=== PATIENT | female | born 1950 | race Caucasian/White ===

== ENCOUNTER 2017-06-25 15:00 | Emergency (ER) | payer BC ==
[2017-06-25 15:35] VITALS: BP 90/64
--- NOTE | 2017-06-25 16:16 | UC ---
Respiratory Complaint HPI - HPI Summary HPI Summary: 66 yo female with states she had the flu about a week ago fever/chills/myalgias/cough runny nose stated feeling better about 4 days ago since then has had a cough only not productive feels fatigued no SOB no n/v no CP - History of Current Complaint Chief Complaint: UCGeneralIllness Stated Complaint: UPPER RESPIRATORY Time Seen by Provider: 06/25/17 16:01 Hx Obtained From: Patient Onset/Duration: Gradual Onset, Lasting Weeks - 1 Timing: Constant Severity Initially: Moderate Severity Currently: Mild Pain Intensity: 0 Pain Scale Used: 0-10 Numeric Character: Cough: Nonproductive Aggravating Factors: Nothing Associated Signs And Symptoms: Positive: Fever - resolved x 3 days, Chills - resolved x 3 days, Nasal Congestion - resolved. Negative: Dyspnea, Wheezing, Calf Pain, Calf Swelling, Edema, URI - Allergies/Home Medications Allergies/Adverse Reactions: Allergies Allergy/AdvReac Type Severity Reaction Status Date / Time Sulfa (Sulfonamide Allergy Rash Verified 06/25/17 15:21 Antibiotics) Home Medications: Home Medications Amitriptyline TAB* [Elavil TAB*] 100 mg PO BEDTIME 06/25/17 [History Confirmed 06/25/17] Chlorthalidone 25 mg PO BEDTIME 06/25/17 [History Confirmed 06/25/17] Fluoxetine HCl [Prozac] 20 mg PO DAILY 06/25/17 [History Confirmed 06/25/17] Omeprazole CAP* [Prilosec CAP* 20 MG] 20 mg PO DAILY 06/25/17 [History Confirmed 06/25/17] Ramipril [Altace] 2.5 mg PO DAILY 06/25/17 [History Confirmed 06/25/17] traZODone TAB* [Desyrel TAB*] 50 mg PO BEDTIME 06/25/17 [History Confirmed 06/25] PMH/Surg Hx/FS Hx/Imm Hx Previously Healthy: Yes Cardiovascular History: Hypertension Respiratory History: Pneumonia - Surgical History Surgical History: Yes Surgery Procedure, Year, and Place: ANTI-REFLUX SX - Family History Known Family History: Positive: Hypertension - Social History Alcohol Use: Daily Substance Use Type: None Smoking Status (MU): Former Smoker When Did the Patient Quit Smoking/Using Tobacco: 2007 Review of Systems Constitutional: Fatigue Skin: Negative Eyes: Negative ENT: Negative Respiratory: Cough Cardiovascular: Negative Gastrointestinal: Negative Genitourinary: Negative Motor: Negative Neurovascular: Negative Musculoskeletal: Negative Neurological: Negative Psychological: Negative Is Patient Immunocompromised?: No All Other Systems Reviewed And Are Negative: Yes Physical Exam Triage Information Reviewed: Yes Appearance: Well-Appearing, No Pain Distress, Well-Nourished Vital Signs: Initial Vital Signs Temp 100 F 06/25/17 15:26 Pulse 80 06/25/17 15:26 Resp 16 06/25/17 15:26 BP 90/64 06/25/17 15:26 Pulse Ox 96 06/25/17 15:26 Vital Signs Reviewed: Yes Eyes: Positive: Conjunctiva Clear ENT: Positive: Hearing grossly normal. Negative: Nasal congestion, Nasal drainage, Tonsillar swelling, Tonsillar exudate, Dental tenderness, Sinus tenderness, Uvula midline Neck: Positive: Supple, Nontender, No Lymphadenopathy Respiratory: Positive: No respiratory distress, No accessory muscle use, Crackles - right base, Wheezing - with forced expiration Cardiovascular: Positive: RRR, No Murmur Musculoskeletal: Positive: ROM Intact, No Edema Neurological: Positive: Alert Psychological Exam: Normal Skin Exam: Normal UC Diagnostic Evaluation - Laboratory O2 Sat by Pulse Oximetry: 96 - normal/not hypoxic - Radiology Xray Interpretation: No Acute Changes - chronic scarring right base Radiology Interpretation Completed By: Radiologist Respiratory Course/Dx - Course Course Of Treatment: repeat BP- normotensive - Differential Dx/Diagnosis Provider Diagnoses: acute bronchitis with bronchospasm Discharge - Discharge Plan Condition: Stable Disposition: HOME Prescriptions: Azithromycin TAB* [Zithromax TAB*] 250 mg PO DAILY #4 tab predniSONE [Deltasone] 40 mg PO DAILY #8 tab Patient Education Materials: Acute Bronchitis (ED) Referrals: Laurie Adams MD [Primary Care Provider] - 3 Days (if not improved) Additional Instructions: use inhaler as directed recheck for new or worsening symptoms or if not better in 3-4 days
--- NOTE | 2017-06-25 16:26 | RAD ---
Indication: Cough. 2 views of the chest including dual energy PA views demonstrates no mediastinal shift. Scarring in the right lung base is noted. No alveolar consolidation is noted. No pleural fluid is identified. IMPRESSION: Chronic pleural changes in the right lung base. No pneumonia is identified.
[2017-06-25] MEDS ORDERED: Albuterol HFA INHALER* 8 gm MDI INH ONE (16:36)
[2017-06-25] MEDS ORDERED: Azithromycin TAB* 250 MG PO ONE (16:37)
[2017-06-25] MEDS ORDERED: predniSONE TAB* 20 MG PO ONE (16:38)
[2017-06-25] MEDS ORDERED: Azithromycin TAB* 250 MG ONE (16:52)
== END 2017-06-25 16:54 | disposition home or self-care (01) ==
LOC: UCCORT 15:00
DX: J20.9 Acute bronchitis, unspecified (principal); I10 Essential (primary) hypertension; Z87.891 Personal history of nicotine dependence
CPT/HCPCS: 71046; 99203; A9270-GY; G0463; J7512

== ENCOUNTER 2017-08-30 11:15 | Emergency (ER) | payer BC ==
[2017-08-30 11:40] VITALS: BP 131/86
--- NOTE | 2017-08-30 12:24 | UC ---
Complaint Female HPI - HPI Summary HPI Summary: Pt presents with c/o continued dysuria that began yesterday. Pt was seen by PCP yesterday and diagnosed with dysuria and urine was sent for urine culture. Pt states that she is not feeling better and is "disappointed that her PCP did not start her on an antibiotic for the dysuria". - History Of Current Complaint Chief Complaint: UCGU Stated Complaint: URINARY Time Seen by Provider: 08/30/17 12:14 Hx Obtained From: Patient ?: No Onset/Duration: Sudden Onset, Lasting Days, Still Present Timing: Constant Severity Initially: Mild Severity Currently: Mild Pain Intensity: 0 Character: Burning Aggravating Factor(s): Urination Alleviating Factor(s): Nothing Associated Signs And Symptoms: Positive: Back Pain - Risk Factors Ectopic Risk Factor: Negative Ovarian Torsion Risk Factor: Negative - Allergies/Home Medications Allergies/Adverse Reactions: Allergies Allergy/AdvReac Type Severity Reaction Status Date / Time Sulfa (Sulfonamide Allergy Rash Verified 08/30/17 11:38 Antibiotics) PMH/Surg Hx/FS Hx/Imm Hx Previously Healthy: Yes Cardiovascular History: Hypertension - Surgical History Surgical History: Yes Surgery Procedure, Year, and Place: ANTI-REFLUX SX - Family History Known Family History: Positive: Hypertension - Social History Occupation: Retired Lives: With Family Alcohol Use: Daily Alcohol Amount: 1 glass wine Substance Use Type: None Smoking Status (MU): Former Smoker Have You Smoked in the Last Year: No When Did the Patient Quit Smoking/Using Tobacco: 2007 Review of Systems Constitutional: Negative Skin: Negative Eyes: Negative ENT: Negative Respiratory: Negative Cardiovascular: Negative Gastrointestinal: Negative Genitourinary: Dysuria Motor: Negative Neurovascular: Negative Musculoskeletal: Myalgia - upper back pain Neurological: Negative Psychological: Negative Is Patient Immunocompromised?: No All Other Systems Reviewed And Are Negative: Yes Physical Exam Triage Information Reviewed: Yes Appearance: Well-Appearing Vital Signs: Initial Vital Signs Temp 98.3 F 08/30/17 11:35 Pulse 94 08/30/17 11:35 Resp 17 08/30/17 11:35 BP 131/86 08/30/17 11:35 Pulse Ox 97 08/30/17 11:35 Vital Signs Reviewed: Yes Eye Exam: Normal ENT: Positive: Hearing grossly normal Neck exam: Normal Respiratory Exam: Normal Cardiovascular Exam: Normal Abdomen Description: Positive: CVA Tenderness (R) Musculoskeletal Exam: Normal Neurological Exam: Normal Psychological Exam: Normal Skin Exam: Normal Complaint Female Dx - Course Course Of Treatment: Pt was insturcted to [facility] with PCP as soon as possible. I also discussed ureaplasma and mycoplasma hominis testing with her. - Differential Dx/Diagnosis Differential Diagnosis/HQI/PQRI: Urinary Tract Infection, Other - kidney stone dysuria cystitis Provider Diagnoses: dysuria Discharge - Sign-Out/Discharge Documenting (check all that apply): Discharge/Admit/Transfer - Discharge Plan Condition: Stable Disposition: HOME Patient Education Materials: Dysuria (ED) Referrals: Laurie Adams MD [Primary Care Provider] - If Needed - Billing Disposition and Condition Condition: STABLE Disposition: HOME
== END 2017-08-30 12:37 | disposition home or self-care (01) ==
LOC: UCCORT 11:15
DX: R30.0 Dysuria (principal); I10 Essential (primary) hypertension; Z88.2 Allergy status to sulfonamides
CPT/HCPCS: 81003; 87798; 99211; G0463

== ENCOUNTER 2018-02-07 12:12 | Emergency (ER) | payer BC ==
[2018-02-07 13:09] VITALS: BP 127/87
--- NOTE | 2018-02-07 13:18 | UC ---
UC General HPI - HPI Summary HPI Summary: Patient presents complaining of a "UTI". She doesn't describe this as burning, frequency and urgency with her urination as a sense of just not feeling well. She denies any associated fever, abdominal pain and flank pain. She also denies any vaginal discharge as well as concern for pelvic infection. She states that she has a history UTIs and this feels the same. - History of Current Complaint Chief Complaint: UCGU Stated Complaint: URINARY COMPLAINT Time Seen by Provider: 02/07/18 13:12 Hx Obtained From: Patient Onset/Duration: Gradual Onset Timing: Constant Pain Intensity: 3 Alleviating: nothing Associated Signs & Symptoms: Positive: Dysuria. Negative: Abdominal Pain, Back Pain, Fever - Allergy/Home Medications Allergies/Adverse Reactions: Allergies Allergy/AdvReac Type Severity Reaction Status Date / Time Sulfa (Sulfonamide Allergy Rash Verified 08/30/17 11:38 Antibiotics) PMH/Surg Hx/FS Hx/Imm Hx Cardiovascular History: Hypertension Psychological History: Depression - Surgical History Surgical History: Yes Surgery Procedure, Year, and Place: LAP YUMI FUNDLPICATION. RAFAELA. HERNIA REPAIR. APPENDIX. . TONSILLECTOMY - Family History Known Family History: Positive: Hypertension - Social History Occupation: Retired Alcohol Use: Daily Alcohol Amount: 1 glass wine Substance Use Type: None Smoking Status (MU): Former Smoker Have You Smoked in the Last Year: No When Did the Patient Quit Smoking/Using Tobacco: 2007 - Immunization History Vaccination Up to Date: Yes Review of Systems Constitutional: Negative Skin: Negative Eyes: Negative ENT: Negative Respiratory: Negative Cardiovascular: Negative Gastrointestinal: Negative Genitourinary: Dysuria, Frequency, Urgency Motor: Negative Neurovascular: Negative Musculoskeletal: Negative Neurological: Negative Psychological: Negative Is Patient Immunocompromised?: No All Other Systems Reviewed And Are Negative: Yes Physical Exam Triage Information Reviewed: Yes Appearance: Well-Appearing Vital Signs: Initial Vital Signs Temp 97.4 F 02/07/18 13:02 Pulse 95 02/07/18 13:02 Resp 14 02/07/18 13:02 BP 127/87 02/07/18 13:02 Pulse Ox 97 02/07/18 13:02 Vital Signs Reviewed: Yes Eyes: Positive: Conjunctiva Clear ENT: Positive: Normal ENT inspection Neck: Positive: Supple, Nontender, No Lymphadenopathy Respiratory: Positive: Lungs clear, Normal breath sounds Cardiovascular: Positive: RRR, No Murmur Abdomen Description: Positive: Nontender, No Organomegaly, Soft. Negative: CVA Tenderness (R), CVA Tenderness (L), Distended, Guarding Bowel Sounds: Positive: Present Musculoskeletal: Positive: ROM Intact Neurological: Positive: Alert Psychological: Positive: Age Appropriate Behavior Skin Exam: Normal Diagnostics - Laboratory Diagnostic Studies Completed/Ordered: U/A=unremarkable, culture is pending. Course/Dx - Course Course Of Treatment: Nontoxic. No acute abdomen. No concern for pyelonephritis. UA is unremarkable however history suggests UTI and patient has history of the same thus we'll treat presumptively. - Differential Dx - Multi-Symptom Provider Diagnoses: Dysuria Discharge - Sign-Out/Discharge Documenting (check all that apply): Patient Departure All imaging exams completed and their final reports reviewed: No Studies - Discharge Plan Condition: Stable Disposition: HOME Prescriptions: Cephalexin CAP* [Keflex CAP*] 500 mg PO TID 7 Days #21 cap Patient Education Materials: Dysuria (ED) Referrals: Laurie Adams MD [Primary Care Provider] - 7 Days - Billing Disposition and Condition Condition: STABLE Disposition: Home
== END 2018-02-07 13:32 | disposition home or self-care (01) ==
LOC: UCCORT 12:12
DX: R30.0 Dysuria (principal); Z88.1 Allergy status to other antibiotic agents; I10 Essential (primary) hypertension; Z87.891 Personal history of nicotine dependence
CPT/HCPCS: 81003; 87077; 87086; 87186; 99212; G0463

== ENCOUNTER 2018-10-26 10:38 | Emergency (ER) | payer MEDICARE ==
[2018-10-26 11:06] VITALS: BP 109/70
--- NOTE | 2018-10-26 11:27 | ED ---
GI/ HPI - HPI Summary HPI Summary: 68 yr old female with one day of dysuria, increased frequency of urination, hesitancy, and supra pubic pain. Symptoms are moderate. No associated fever or back pain. She has mild nausea but no vomiting. She has no other complaints. - History of Current Complaint Chief Complaint: UCGU Time Seen by Provider: 10/26/18 11:10 Stated Complaint: URINARY COMPLAINT Pain Intensity: 0 - Allergy/Home Medications Allergies/Adverse Reactions: Allergies Allergy/AdvReac Type Severity Reaction Status Date / Time Sulfa (Sulfonamide Allergy Rash Verified 10/26/18 11:00 Antibiotics) Home Medications: Home Medications Cranberry Conc/C/Bacill Coag [Azo Cranberry 250-30 mg] 1 tab PO ONCE PRN [History Confirmed 10/26/18] PMH/Surg Hx/FS Hx/Imm Hx Cardiovascular History: Reports: Hx Hypertension - Surgical History Surgery Procedure, Year, and Place: LAP YUMI FUNDLPICATION. RAFAELA. HERNIA REPAIR. APPENDIX. . TONSILLECTOMY Infectious Disease History: No Infectious Disease History: Denies: Traveled Outside the [place] in Last 30 Days - Family History Known Family History: Positive: Hypertension - Social History Occupation: Retired Alcohol Use: Daily Alcohol Amount: 1 glass wine Substance Use Type: Reports: None Smoking Status (MU): Former Smoker Have You Smoked in the Last Year: No Review of Systems Constitutional: Negative Positive: dysuria, frequency, urgency All Other Systems Reviewed And Are Negative: Yes Physical Exam Triage Information Reviewed: Yes Vital Signs On Initial Exam: Initial Vitals Temp Pulse Resp BP Pulse Ox 98.9 F 89 15 109/70 96 10/26/18 11:02 10/26/18 11:02 10/26/18 11:02 10/26/18 11:02 10/26/18 11:02 Vital Signs Reviewed: Yes Appearance: Positive: Well-Appearing, No Pain Distress Skin: Positive: Warm, Skin Color Reflects Adequate Perfusion Head/Face: Positive: Normal Head/Face Inspection Eyes: Positive: EOMI, KENN Neck: Positive: Nontender Respiratory/Lung Sounds: Positive: Clear to Auscultation, Breath Sounds Present Cardiovascular: Positive: RRR. Negative: Murmur Abdomen Description: Positive: Nontender. Negative: CVA Tenderness (R), CVA Tenderness (L) Musculoskeletal: Positive: Strength/ROM Intact Neurological: Positive: Sensory/Motor Intact, Alert, Oriented to Person Place, Time, CN Intact II-III, Speech Normal Psychiatric: Positive: Normal Diagnostics - Vital Signs Vital Signs Temp Pulse Resp BP Pulse Ox 10/26/18 11:02 98.9 F 89 15 109/70 96 - Laboratory Lab Results: Lab Results 10/26/18 Range/Units 11:16 POC Urine Color Yellow POC Urine Clarity Slightly cloudy POC Urine pH 7.5 (5-9) POC Ur Specif Entriken 1.010 (1.010-1.030) POC Urine Protein Negative (Negative) POC Ur Glucose (UA) Negative (Negative) POC Urine Ketones Negative (Negative) POC Urine Blood 2+ A (Negative) POC Urine Nitrite Positive A (Negative) POC Urine Bilirubin Negative (Negative) POC Urine Urobilinogen 0.2 (Negative) POC U Leukocyte Esteras 3+ A (Negative) Lab Statement: Any lab studies that have been ordered have been reviewed, and results considered in the medical decision making process. GIGU Course/Dx - Course Course Of Treatment: 68 yr old with uti. DC home on keflex seven day course. - Diagnoses Provider Diagnoses: UTI (urinary tract infection) Discharge - Sign-Out/Discharge Documenting (check all that apply): Patient Departure All imaging exams completed and their final reports reviewed: No Studies - Discharge Plan Condition: Good Disposition: HOME Prescriptions: Cephalexin CAP* [Keflex CAP*] 500 mg PO TID #15 cap Cephalexin CAP* [Keflex CAP*] 500 mg PO TID #21 cap Patient Education Materials: Urinary Tract Infection in Women (ED) Referrals: Laurie Adams MD [Primary Care Provider] - 3 Days - Billing Disposition and Condition Condition: GOOD Disposition: Home
== END 2018-10-26 11:27 | disposition home or self-care (01) ==
LOC: UCCORT 10:38
DX: N39.0 Urinary tract infection, site not specified (principal); B96.20 Unspecified Escherichia coli [E. coli] as the cause of diseases classified elsewhere; Z88.2 Allergy status to sulfonamides; I10 Essential (primary) hypertension; Z87.891 Personal history of nicotine dependence
CPT/HCPCS: 81003; 87077; 87086; 87186; 99212; G0463